=== PATIENT | male | born 1950 | race Caucasian/White ===

== ENCOUNTER → 2018-12-27 | Outpatient (CLI) | payer MEDICARE ==
--- NOTE | 2018-12-28 23:53 | HOLTMON ---
[facility] Test Date: 2018-12-27 Pat Name: RUCHI JESSICA Department: Room: - Gender: Male Global Cmo: JULIETA DUNAWAY : 1950 Requested By: Antoni Pearl Order Number: [id number] Reading MD: Alex Allan Interpretive Statements FATHER HAD A HEART ATTACK AT 63 CIGAR 1X A WEEK 10 YEARS ALOT OF ARTIFACTPT STATED HE DOESNT SLEEP WELL AND GETS UP ALOT THROUGHOUT THE NIGHT AND DAY. Normal sinus rhythm with a maximum heart of 102 bpm noted at 11:20:40 PM and a minimum rate of 19 bpm at 6:59:37 AM. No activity reported with the maximum heart rate. Rare isolated PACs. Very rare isolated PVCs. No ventricular run. Pauses noted, longest 3.5 seconds. Patient and referring provider to be contacted. Electronically Signed on 12-28-2018 23:53:14 EST by Alex Allan
== END ==
LOC: M EKG 12:49
PROVIDERS: ATTEND Pediatrics
DX: I48.91 Unspecified atrial fibrillation (principal)

== ENCOUNTER → 2019-01-07 | Outpatient (CLI) | payer MEDICARE ==
--- NOTE | 2019-01-09 07:36 | HOLTMON ---
[facility] Test Date: 2019-01-07 Pat Name: RUCHI JESSICA Department: Room: - Gender: Male Template Inspector: Nhi Salgado/TANNER SALDIVAR : 1950 Requested By: Antoni Pearl Order Number: [id number] Reading MD: Obie Torres Interpretive Statements Patient had a 24 hour Holter Monitor for bradycardia. Rate varied between 24-105 beats per minute. Patient had 45 pauses greater than 2 seconds, the longest was 2.5 seconds. Patient expereinced 81 ventricular beats and 61 supraventricular beats. Patient's EKG strips showed episodes of third degree heart block. Diagnosis: Third degree heart block. I reviewed the relavent EKG strips immediately as they became available. Patient was encouraged to stay at hospital and seek further care by the cnc maintenance technician. Patient declined. Template Inspector attempted to reach ordering provider. Electronically Signed on 01-09-2019 7:35:54 EST by Obie Torres
== END ==
LOC: M EKG 09:55
PROVIDERS: ATTEND Pediatrics
DX: I44.39 Other atrioventricular block (principal); I48.0 Paroxysmal atrial fibrillation

== ENCOUNTER → 2019-01-24 | Outpatient (CLI) | payer MEDICARE ==
--- NOTE | 2019-01-25 17:48 | HOLTMON ---
[facility] Test Date: 2019-01-24 Pat Name: RUCHI JESSICA Department: Room: - Gender: Male Car Driver: JULIETAKAYCE DUNAWAY : 1950 Requested By: Thad Leonardo Order Number: [id number] Reading MD: Johnson Piedra Interpretive Statements Underlying rhythm was sinus/sinus arrhythmia with rate that varied between 28 bpm at 1:44 AM and 119 bpm at 5 PM on averaging 82 bpm. Heart rates less than 45 bpm were all nocturnal. 11 pauses greater than 2 seconds (all nocturnal); longest 2.2 seconds at 1:44 AM measuring 2.2 seconds. 72 PACs, and 28 atrial couplets but no PSVT.. 142 isolated PVCs, one ventricular couplet and 4 ventricular triplets but no ventricular tachycardia. 4diary events reporting "up and out of.bed, back to bed, up and awkae" did not correlate with any rhythm or rate change. Nocturnal bradyarrhythmia is suggestive of obstructive sleep apnea; formal evaluation would be advised. Electronically Signed on 01-25-2019 17:47:41 EST by Johnson Piedra
--- NOTE | 2019-01-27 07:59 | ECHO ---
DATE OF PROCEDURE: 01/24/2019 DATE OF : 1950 AGE: 68 GENDER: Male. HEIGHT: 68 inches. WEIGHT: 263 pounds. BODY SURFACE AREA: 2.3 m2 OUTPATIENT REFERRING PHYSICIAN: Dr. Thad Leonardo INDICATION: Edema. MEASUREMENTS 2-D Measurements: RV: 3.7 cm LV: 4.0 cm Septum: 1.3 cm Posterior wall: 1.3 cm Aortic root: 3.5 cm LA: 4.2 cm LVEF: 75% Doppler Measurements: AV: 1.44 m/s LVOT: 0.9 m/s LVOT diameter: 2.1 cm MV - E 54 A 75 EA ratio 0.7 Early mitral deceleration time: 278 ms E prime medial: 8.2 A prime medial: 10 E prime lateral: 9.4 Average E/E prime ratio: 6.1/PCWP 9.5 mmHg PV: 0.85 m/s Pulmonary artery acceleration time: 123 ms PASP: 24 mmHg IVC: 1.7 cm COMMENTS: Normal sinus rhythm without intraventricular conduction disturbance. Somewhat challenging study in light of the patient's body habitus, but diagnostically useful information was still obtained. M-mode and two-dimensional echocardiography was performed with pulsed, continuous wave, color flow and tissue Doppler studies. Mild concentric left ventricle hypertrophy with hyperkinetic wall motion. Mildly dilated left atrium with grade one LV diastolic dysfunction, but currently normal estimated mean left atrial pressure. Normal right heart chamber sizes and motion and estimated pulmonary arterial pressure. Normal IVC size and collapse against an elevated central venous pressure. Mild aortic valvular sclerosis without functional abnormality. Normal aortic dimensions. Slightly thickened mitral annulus, but normal leaflet thickness and excursion with no posterior systolic buckling and only trace mitral insufficiency. Normal appearing tricuspid valve with trace insufficiency. No apparent intracardiac mass or pericardial effusion.
== END ==
LOC: M CARPUL 11:14
PROVIDERS: ATTEND Internal Medicine Cardiovascular Disease
DX: I35.0 Nonrheumatic aortic (valve) stenosis (principal); I11.9 Hypertensive heart disease without heart failure; R60.9 Edema, unspecified; R00.1 Bradycardia, unspecified

== ENCOUNTER → 2019-02-12 | Outpatient (CLI) | payer MEDICARE ==
[2019-02-12 17:49] LABS: EOS # 0.1 10^3/uL (0.0-0.5); EOS % 2.6 % (0.0-3.0); HEMATOCRIT 43.8 % (42.0-52.0); HEMOGLOBIN 13.6 g/dl (13.5-17.5); LYMPH % 24.3 % (24.0-44.0); MEAN CORPUSCULAR HEMOGLOBIN 27.6 pg (27.0-33.0); MEAN CORPUSCULAR HGB CONC 31.1 g/dl (32.0-36.5); MONO # 0.3 10^3/uL (0.0-0.8); MONO % 6.5 % (0.0-5.0); NEUTROPHILS # 2.7 10^3/uL (1.5-8.5); NEUTROPHILS % 64.6 % (36.0-66.0); PLATELET COUNT, AUTOMATED 166 10^3/uL (150-450); RED BLOOD COUNT 4.92 10^6/uL (4.30-6.10); WHITE BLOOD COUNT 4.2 10^3/uL (4.0-10.0)
[2019-02-12 18:06] LABS: CALCIUM LEVEL 9.2 MG/DL (8.8-10.2); CREATININE FOR GFR 1.62 MG/DL (0.70-1.30); FREE T4 0.98 NG/DL (0.76-1.46); GLOMERULAR FILTRATION RATE 45.5 (>49); POTASSIUM SERUM 4.3 MEQ/L (3.5-5.1); THYROID STIMULATING HORMONE 3.33 uIU/ML (0.358-3.740)
== END ==
LOC: M WUC 11:43
PROVIDERS: ATTEND Physician Assistant Medical
DX: I48.0 Paroxysmal atrial fibrillation (principal)

== ENCOUNTER → 2019-02-21 | Outpatient (CLI) | payer MEDICARE ==
--- NOTE | 2019-02-26 08:59 | SLEEPCENT ---
DATE OF STUDY: 02/21/2019 ORDERED BY: BREN Fontanez Nocturnal polysomnography was performed for evaluation of sleep physiology in this patient with a history of excessive somnolence and nonrestorative sleep who has comorbidities of diabetes and hypertension. 7 hours and 35 minutes of data were reviewed. There were 136 minutes of sleep identified. Sleep latency was mildly prolonged at 24 minutes. Rapid eye movement (REM) latency was very prolonged at 244 minutes. Sleep architecture showed poor progression, fragmentation and prolonged periods of wake. There was only one REM cycles noted. Overall sleep efficiency 30.5%. The patient's electrocardiogram showed atrial fibrillation with a controlled ventricular response of 68 beats per minute. EEG showed normal waveforms for awake and sleep. There were 286 respiratory events identified of 10 seconds in duration or greater for an apnea-hypopnea index of 126.2. The events were primarily obstructive though 25 mixed and central apneas were seen. Arousals from respiratory events occurred 54.3 times per hour and oxygen desaturations were seen into the 60s. There was some limb activity appreciated as well, but arousals from limb events were not appreciated. IMPRESSION: Severe obstructive sleep apnea syndrome (G47.33). Apnea-hypopnea index 126.2. RECOMMENDATIONS: The patient should be encouraged to return to the sleep disorder center for pressure therapy. In the interim, alcohol and sedative avoidance should be practiced, and caution exercised during operation of motor vehicles. cc: Thad Ulloa MD
== END ==
LOC: M SLEEP 19:32
PROVIDERS: ATTEND Nurse Practitioner Family
DX: G47.33 Obstructive sleep apnea (adult) (pediatric) (principal); R06.83 Snoring

== ENCOUNTER → 2019-03-19 | Outpatient (CLI) | payer MEDICARE | LOC: M SLEEP 19:41 | PROVIDERS: ATTEND Nurse Practitioner Family | DX: G47.33 Obstructive sleep apnea (adult) (pediatric) (principal) ==

== ENCOUNTER → 2019-08-27 | Outpatient (CLI) | payer MEDICARE ==
[2019-08-27 13:04] LABS: CHOLESTEROL RISK RATIO 5.172 (<5)
== END ==
LOC: M WUC 08:52
PROVIDERS: ATTEND Internal Medicine Cardiovascular Disease
DX: E78.2 Mixed hyperlipidemia (principal)